=== PATIENT | female | born 1945 | race African-American/Black ===

== ENCOUNTER 2018-07-07 07:55 | Inpatient (IN) | payer OTHER, MEDICARE ==
[~2018-07-07] VITALS: Ht 162.6 cm; Wt 68.0 kg
[2018-07-07] MEDS ORDERED: TELM1TAB33 PO (08:04)
[2018-07-07] MEDS ORDERED: OMEP20TA2 PO (08:04)
[2018-07-07] MEDS ORDERED: ONDA8TAB6 PO (08:04)
[2018-07-07] MEDS ORDERED: CARV25TA47 PO (08:04)
[2018-07-07] MEDS ORDERED: ONDANSETRON HCL 4MG/2ML INJ IV STA (08:33)
[2018-07-07] MEDS ORDERED: FAMOTIDINE 20MG/2ML VIAL IV STA (08:33)
[2018-07-07] MEDS ORDERED: SODIUM CHLORIDE 0.9% 1,000 ML IV ONE (08:33)
[2018-07-07] MEDS ORDERED: MORPHINE SULFATE 4 MG/ML CPJ (NOT FOR IM USE) IV STA (08:33)
[2018-07-07 09:07] LABS: BASOPHILS % 0.4 % (0.0-2.0); HEMATOCRIT. 49.6 % (36.0-48.0); HEMOGLOBIN. 16.2 g/dL (12.0-16.0); MEAN CORPUSCULAR HEMOGLOBIN 27.6 pg (28.0-32.0); MEAN CORPUSCULAR VOLUME 84.5 fL (81.0-99.0); MEAN PLATELET VOLUME 9.6 fl (7.4-10.4); MONOCYTES % 5.3 % (2.0-8.0); NEUTROPHILS % 78.3 % (40.0-76.0); PLATELET 362 x1000/uL (130-400); RED BLOOD CELL COUNT 5.87 mill/uL (4.2-5.4); RED CELL DISTRIBUTION WIDTH 13.7 % (11.6-14.6)
[2018-07-07 09:47] LABS: CHLORIDE 101 mEq/L (98-107)
[2018-07-07 09:49] LABS: INR 1.1; PARTIAL THROMBOPLASTIN TIME 24.4 sec (23.4-31.0); PROTHROMBIN TIME 11.3 sec (9.1-11.1)
[2018-07-07] MEDS ORDERED: MORPHINE SULFATE 4 MG/ML CPJ (NOT FOR IM USE) IV ONE (10:30)
[2018-07-07] MEDS ORDERED: SODIUM CHLORIDE 0.9% 1000ML BAG (SEPSIS BOLUS) IV ONE (10:30)
[2018-07-07] MEDS ORDERED: PIPERACILLIN/TAZ 3.375G PREMIX 50 ML IV ONE (10:30)
[2018-07-07] MEDS ORDERED: ONDANSETRON HCL 4MG/2ML INJ IV ONE (10:30)
[2018-07-07] MEDS ORDERED: HYDRALAZINE 20MG/ML VIAL IV ONE (12:00)
[2018-07-07] MEDS ORDERED: PANTOPRAZOLE SODIUM 40 MG/VIAL IV ONE (12:00)
[2018-07-07 12:27] LABS: AMYLASE 179 IU/L (25-115)
[2018-07-07] MEDS ORDERED: DIPHENHYDRAMINE 50MG/ML VIAL IV PRN (15:00)
[2018-07-07] MEDS ORDERED: LORAZEPAM 2MG/ML CPJ IV PRN (15:00)
[2018-07-07] MEDS ORDERED: IPRATROPIUM/ALBUTEROL 0.5-3(2.5)MG/3ML NEB INH PRN (15:00)
[2018-07-07] MEDS ORDERED: HYDRALAZINE 20MG/ML VIAL IV NR (15:15)
[2018-07-07 15:34] LABS: CLARITY URINE CLEAR (CLEAR); COLOR URINE YELLOW (YELLOW); KETONES URINE NEGATIVE (NEGATIVE); LEUKOCYTE ESTERASE URINE 1+ (NEGATIVE); NITRITE URINE NEGATIVE (NEGATIVE); OCCULT BLOOD URINE NEGATIVE (NEGATIVE); PH URINE 5.5 (4.5-8.0); PROTEIN URINE 1+ (NEGATIVE); SPECIFIC GRAVITY URINE 1.013 (1.005-1.030); UROBILINOGEN URINE 0.2 E.U./dL (0.2-1.0)
[2018-07-07 15:35] LABS: BG CARBOXYHEMOGLOBIN 1.2 % (0.5-1.5); BG DEOXYHEMOGLOBIN 3.3 % (0.0-5.0); BG FRACTION INSPIRED OXYGEN 21; BG METHEMOGLOBIN 0.2 % (0.0-1.5); BG OXYGEN SATURATION 96.7 % (92.0-98.5); BG OXYHEMOGLOBIN 95.3 % (94.0-97.0); BG PCO2 33.6 mmHg (35.0-45.0); BG PH 7.471 (7.350-7.450); BG PO2 86.9 mmHg (75.0-100.0); BG SAMPLE SITE RIGHT RADIAL; BG TOTAL HEMOGLOBIN 14.7 g/dL (12.0-18.0); BG VENT MODE ROOM AIR
[2018-07-07 15:53] LABS: *AMPHETAMINES SCREEN URINE NEGATIVE (NEGATIVE); *BARBITURATES SCREEN URINE NEGATIVE (NEGATIVE); *BENZODIAZEPINES SCREEN URINE NEGATIVE (NEGATIVE); CANNABINOID URINE SCREEN NEGATIVE (NEGATIVE); METHADONE URINE SCREEN NEGATIVE (NEGATIVE); OPIATES URINE SCREEN PRESUMTIVE POSITIVE (NEGATIVE); PHENCYCLIDINE URINE SCREEN NEGATIVE (NEGATIVE)
[2018-07-07 15:54] LABS: *COCAINE SCREEN URINE NEGATIVE (NEGATIVE)
[2018-07-07 16:21] LABS: HEMOGLOBIN 14.5 g/dL (12.0-16.0); MEAN CORPUSCULAR HEMOGLOBIN 27.8 pg (28.0-32.0); MEAN CORPUSCULAR VOLUME 85.9 fL (81.0-99.0); PLATELET 270 x1000/uL (130-400); RED BLOOD CELL COUNT 5.23 mill/uL (4.2-5.4); RED CELL DISTRIBUTION WIDTH 13.6 % (11.6-14.6)
[2018-07-07] MEDS: ONDANSETRON HCL 4MG/2ML INJ IV PRN (16:28)
[2018-07-07] MEDS: HYDRALAZINE 20MG/ML VIAL IV PRN (16:28)
[2018-07-07] MEDS: MORPHINE SULFATE 4 MG/ML CPJ (NOT FOR IM USE) IV PRN (16:28)
[2018-07-07] MEDS ORDERED: PIPERACILLIN/TAZ 2.25G PREMIX 50 ML IV NR (20:30)
[2018-07-07] MEDS: PANTOPRAZOLE SODIUM 40 MG/VIAL IV SCH (22:00)
[2018-07-07] MEDS: DEXT 5%/0.45% NACL 1000ML 1,000 ML IV SCH (22:08)
[2018-07-07 23:06] VITALS: BP 170/95
[2018-07-07 23:30] VITALS: BP 182/99
[2018-07-07 23:35] LABS: HEMATOCRIT 42.2 % (36.0-48.0); HEMOGLOBIN 13.8 g/dL (12.0-16.0)
[2018-07-07 23:51] LABS: CREATINE KINASE MB FRACTION 5.2 ng/mL (0.5-3.6)
[2018-07-08] VITALS (74 sets, daily range): BP systolic 110–202; BP diastolic 56–148
[2018-07-08] MEDS ORDERED: VANCOMYCIN 1 G PREMIX 200 ML IV SCH
[2018-07-08] MEDS: MORPHINE SULFATE 4 MG/ML CPJ (NOT FOR IM USE) IV PRN ×3 (00:13→14:27)
[2018-07-08] MEDS: PANTOPRAZOLE SODIUM 40 MG/VIAL IV SCH ×2 (01:00→20:52)
[2018-07-08] MEDS: PIPERACILLIN/TAZ 2.25G PREMIX 50 ML IV SCH ×3 (03:00→17:17)
[2018-07-08 06:18] LABS: BASOPHILS % 0.1 % (0.0-2.0); HEMATOCRIT. 40.9 % (36.0-48.0); HEMOGLOBIN. 13.5 g/dL (12.0-16.0); LYMPHOCYTES % 15.5 % (20.0-50.0); MEAN CORPUSCULAR HEMOGLOBIN 27.9 pg (28.0-32.0); MEAN CORPUSCULAR VOLUME 84.4 fL (81.0-99.0); MEAN PLATELET VOLUME 9.3 fl (7.4-10.4); MONOCYTES % 7.8 % (2.0-8.0); NEUTROPHILS % 76.6 % (40.0-76.0); PLATELET 283 x1000/uL (130-400); RED BLOOD CELL COUNT 4.85 mill/uL (4.2-5.4); RED CELL DISTRIBUTION WIDTH 13.5 % (11.6-14.6)
[2018-07-08 06:39] LABS: CHLORIDE 105 mEq/L (98-107)
[2018-07-08 06:46] LABS: AMYLASE 256 IU/L (25-115)
[2018-07-08 06:47] LABS: LDL CHOLESTEROL 115 mg/dL (5-100)
[2018-07-08 06:48] LABS: CREATINE KINASE 353 IU/L (26-192); CREATINE KINASE MB FRACTION 4.5 ng/mL (0.5-3.6); HDL CHOLESTEROL 48 mg/dL (40-59)
[2018-07-08] MEDS: HYDRALAZINE 20MG/ML VIAL IV PRN (08:18)
[2018-07-08] MEDS ORDERED: POTASSIUM CHLORIDE INJ 40 MEQ in DEXT 5% WATER 250 ML IV NR (12:00)
[2018-07-08] MEDS: ONDANSETRON HCL 4MG/2ML INJ IV PRN (13:17)
[2018-07-08] MEDS: DEXT 5%/0.45% NACL 1000ML 1,000 ML IV SCH (13:22)
[2018-07-08] MEDS ORDERED: PIPERACILLIN/TAZ 2.25G PREMIX 50 ML IV SCH (14:00)
[2018-07-08] MEDS: ENALAPRIL 1.25MG/ML VIAL 1ML IV PRN (14:26)
[2018-07-08] MEDS ORDERED: ENALAPRIL 1.25MG/ML VIAL 1ML IV NR (15:30)
[2018-07-08] MEDS ORDERED: MORPHINE SULFATE 4 MG/ML CPJ (NOT FOR IM USE) IV NR (15:30)
[2018-07-08 16:04] LABS: PHOSPHORUS 2.8 mg/dL (2.5-4.9)
[2018-07-08] MEDS: NITROGLYCERIN 50MG PREMIX 250 ML IV PRN (17:17)
[2018-07-08] MEDS: VANCOMYCIN 750 MG PREMIX 150 ML IV SCH (20:52)
[2018-07-09] VITALS (97 sets, daily range): BP systolic 85–220; BP diastolic 39–135
[2018-07-09] MEDS: PIPERACILLIN/TAZ 2.25G PREMIX 50 ML IV SCH ×4 (00:11→17:10)
[2018-07-09] MEDS: MORPHINE SULFATE 4 MG/ML CPJ (NOT FOR IM USE) IV PRN (02:59)
[2018-07-09] MEDS: DEXT 5%/0.45% NACL 1000ML 1,000 ML IV SCH ×3 (05:00→17:10)
[2018-07-09 05:40] LABS: HEMATOCRIT 36.2 % (36.0-48.0); HEMOGLOBIN 12.1 g/dL (12.0-16.0); MEAN CORPUSCULAR HEMOGLOBIN 28.3 pg (28.0-32.0); MEAN CORPUSCULAR VOLUME 84.7 fL (81.0-99.0); PLATELET 236 x1000/uL (130-400); RED BLOOD CELL COUNT 4.28 mill/uL (4.2-5.4); RED CELL DISTRIBUTION WIDTH 13.5 % (11.6-14.6)
[2018-07-09 05:42] LABS: CHLORIDE 106 mEq/L (98-107)
[2018-07-09 05:49] LABS: AMYLASE 222 IU/L (25-115)
[2018-07-09] MEDS: NITROGLYCERIN 50MG PREMIX 250 ML IV PRN ×2 (07:11→08:40)
[2018-07-09] MEDS ORDERED: NA PHOS,M-B/NA PHOS,DI-BA ENEMA 118ML PR NR (08:15)
[2018-07-09] MEDS: ONDANSETRON HCL 4MG/2ML INJ IV PRN ×2 (08:39→20:00)
[2018-07-09] MEDS: PANTOPRAZOLE SODIUM 40 MG/VIAL IV SCH ×2 (08:46→21:00)
[2018-07-09] MEDS: BISACODYL 5MG TABLET PO SCH (08:46)
[2018-07-09] MEDS ORDERED: KCL 20MEQ/100ML PREMIX 100 ML IV NR (09:00)
[2018-07-09] MEDS: HYDRALAZINE 20MG/ML VIAL IV PRN ×3 (09:03→21:34)
[2018-07-09] MEDS: ENALAPRIL 1.25MG/ML VIAL 1ML IV PRN ×2 (10:55→16:18)
[2018-07-09] MEDS ORDERED: LORAZEPAM 2MG/ML CPJ IV PRN (19:00)
[2018-07-09] MEDS: VANCOMYCIN 750 MG PREMIX 150 ML IV SCH (21:00)
[2018-07-09] MEDS: CLONIDINE 0.1MG TABLET PO SCH (21:01)
[2018-07-10] VITALS (61 sets, daily range): BP systolic 127–190; BP diastolic 40–108
[2018-07-10] MEDS: ENALAPRIL 1.25MG/ML VIAL 1ML IV PRN ×3 (04:28→18:28)
[2018-07-10] MEDS: DEXT 5%/0.45% NACL 1000ML 1,000 ML IV SCH ×3 (04:50→18:29)
[2018-07-10] MEDS: PIPERACILLIN/TAZ 2.25G PREMIX 50 ML IV SCH ×4 (05:04→20:52)
[2018-07-10] MEDS: CLONIDINE 0.1MG TABLET PO SCH ×3 (05:05→22:00)
[2018-07-10 05:43] LABS: CHLORIDE 105 mEq/L (98-107)
[2018-07-10 05:51] LABS: HEMATOCRIT 33.8 % (36.0-48.0); HEMOGLOBIN 11.4 g/dL (12.0-16.0); MEAN CORPUSCULAR HEMOGLOBIN 28.3 pg (28.0-32.0); MEAN CORPUSCULAR VOLUME 84.2 fL (81.0-99.0); PLATELET 218 x1000/uL (130-400); RED BLOOD CELL COUNT 4.01 mill/uL (4.2-5.4); RED CELL DISTRIBUTION WIDTH 13.4 % (11.6-14.6)
[2018-07-10] MEDS ORDERED: POTASSIUM CHLORIDE INJ 50 MEQ in DEXT 5% WATER 500 ML IV NR (07:30)
[2018-07-10] MEDS: PANTOPRAZOLE SODIUM 40 MG/VIAL IV SCH ×2 (08:00→20:52)
[2018-07-10] MEDS: BISACODYL 5MG TABLET PO SCH (08:00)
[2018-07-10] MEDS: HYDRALAZINE 20MG/ML VIAL IV PRN ×2 (08:03→15:37)
[2018-07-10] MEDS: AMLODIPINE 5MG TABLET PO SCH (11:12)
[2018-07-10 12:29] LABS: HEPATITIS B SURFACE ANTIGEN NEGATIVE
[2018-07-10 12:57] LABS: HEPATITIS A AB IGM NEGATIVE (NEGATIVE)
[2018-07-10] MEDS: ONDANSETRON HCL 4MG/2ML INJ IV PRN (13:54)
[2018-07-10] MEDS: MORPHINE SULFATE 4 MG/ML CPJ (NOT FOR IM USE) IV PRN (13:55)
[2018-07-10] MEDS ORDERED: VANCOMYCIN 1 G PREMIX 200 ML IV SCH (15:00)
[2018-07-11] VITALS (19 sets, daily range): BP systolic 124–189; BP diastolic 78–118
[2018-07-11] MEDS: HYDRALAZINE 20MG/ML VIAL IV PRN ×2 (01:07→08:25)
[2018-07-11] MEDS ORDERED: POTASSIUM CHLORIDE INJ 40 MEQ in SODIUM CHLORIDE 0.9% 250 ML IV SCH (02:00)
[2018-07-11] MEDS: ENALAPRIL 1.25MG/ML VIAL 1ML IV PRN (04:55)
[2018-07-11] MEDS: PIPERACILLIN/TAZ 2.25G PREMIX 50 ML IV SCH ×3 (04:59→21:12)
[2018-07-11] MEDS: CLONIDINE 0.1MG TABLET PO SCH ×3 (05:00→21:12)
[2018-07-11] MEDS: DEXT 5%/0.45% NACL 1000ML 1,000 ML IV SCH ×2 (05:02→21:13)
[2018-07-11 05:56] LABS: HEMATOCRIT 35.8 % (36.0-48.0); MEAN CORPUSCULAR HEMOGLOBIN 28.2 pg (28.0-32.0); MEAN CORPUSCULAR VOLUME 84.1 fL (81.0-99.0); PLATELET 223 x1000/uL (130-400); RED BLOOD CELL COUNT 4.26 mill/uL (4.2-5.4); RED CELL DISTRIBUTION WIDTH 13.2 % (11.6-14.6)
[2018-07-11] MEDS: ONDANSETRON HCL 4MG/2ML INJ IV PRN (08:25)
[2018-07-11] MEDS: AMLODIPINE 5MG TABLET PO SCH (08:41)
[2018-07-11] MEDS: PANTOPRAZOLE SODIUM 40 MG/VIAL IV SCH ×2 (08:48→21:12)
[2018-07-11] MEDS: BISACODYL 5MG TABLET PO SCH (08:48)
[2018-07-11] MEDS ORDERED: METOPROLOL TARTRATE 25MG TABLET PO SCH ×2 (11:00→21:00)
[2018-07-11] MEDS: HYDRALAZINE HCL 25MG TABLET PO SCH ×2 (14:00→21:12)
[2018-07-11] MEDS ORDERED: LORAZEPAM 2MG/ML CPJ IV PRN (15:00)
[2018-07-11] MEDS: POTASSIUM CHLORIDE INJ 40 MEQ in DEXT 5% WATER 250 ML IV SCH ×2 (15:00→16:49)
[2018-07-12] VITALS: BP 138/87
[2018-07-12] MEDS: DEXT 5%/0.45% NACL 1000ML 1,000 ML IV SCH ×2 (03:28→09:03)
[2018-07-12 04:00] VITALS: BP 164/87
[2018-07-12] MEDS: HYDRALAZINE HCL 25MG TABLET PO SCH ×3 (05:24→21:52)
[2018-07-12] MEDS: PIPERACILLIN/TAZ 2.25G PREMIX 50 ML IV SCH ×3 (05:24→20:52)
[2018-07-12] MEDS: CLONIDINE 0.1MG TABLET PO SCH ×3 (05:24→21:52)
[2018-07-12] MEDS: HYDRALAZINE 20MG/ML VIAL IV PRN ×2 (05:24→12:31)
[2018-07-12 06:21] LABS: HEMATOCRIT 32.5 % (36.0-48.0); HEMOGLOBIN 10.7 g/dL (12.0-16.0); MEAN CORPUSCULAR HEMOGLOBIN 27.8 pg (28.0-32.0); MEAN CORPUSCULAR VOLUME 84.6 fL (81.0-99.0); PLATELET 220 x1000/uL (130-400); RED BLOOD CELL COUNT 3.84 mill/uL (4.2-5.4); RED CELL DISTRIBUTION WIDTH 13.3 % (11.6-14.6)
[2018-07-12 06:27] LABS: PHOSPHORUS 2.8 mg/dL (2.5-4.9)
[2018-07-12 08:00] VITALS: BP 147/70
[2018-07-12] MEDS ORDERED: POTASSIUM CHLORIDE INJ 40 MEQ in DEXT 5% WATER 250 ML IV SCH (08:30)
[2018-07-12] MEDS: AMLODIPINE 5MG TABLET PO SCH (09:01)
[2018-07-12] MEDS: PANTOPRAZOLE SODIUM 40 MG/VIAL IV SCH ×2 (09:03→20:52)
[2018-07-12 12:00] VITALS: BP 189/80
[2018-07-12] MEDS ORDERED: SODIUM CHLORIDE 0.9% 10ML VIAL ONE (15:03)
[2018-07-12] MEDS ORDERED: MIDAZOLAM HCL 5 MG/5 ML VIAL IV PRN (15:22)
[2018-07-12] MEDS ORDERED: FENTANYL CITRATE/PF 50MCG/ML 2ML VIAL IV PRN (15:23)
[2018-07-12] MEDS ORDERED: SIMETHICONE 40 MG/0.6 ML 30ML ONE (15:30)
[2018-07-12] MEDS ORDERED: FENTANYL CITRATE/PF 50MCG/ML 2ML VIAL ONE (15:31)
[2018-07-12] MEDS ORDERED: MIDAZOLAM HCL 5 MG/5 ML VIAL ONE (15:31)
[2018-07-12 17:00] VITALS: BP 135/90
[2018-07-12 20:00] VITALS: BP 125/71
[2018-07-12] MEDS ORDERED: VANCOMYCIN 750 MG PREMIX 150 ML IV NR (21:00)
[2018-07-13] VITALS (7 sets, daily range): BP systolic 126–179; BP diastolic 61–103
[2018-07-13] MEDS: DEXT 5%/0.45% NACL 1000ML 1,000 ML IV SCH ×3 (02:50→18:47)
[2018-07-13] MEDS: PIPERACILLIN/TAZ 2.25G PREMIX 50 ML IV SCH ×3 (05:39→21:03)
[2018-07-13] MEDS: HYDRALAZINE HCL 25MG TABLET PO SCH ×3 (05:41→21:04)
[2018-07-13] MEDS: CLONIDINE 0.1MG TABLET PO SCH ×2 (05:41→13:33)
[2018-07-13] MEDS: AMLODIPINE 5MG TABLET PO SCH (09:17)
[2018-07-13] MEDS: PANTOPRAZOLE SODIUM 40 MG/VIAL IV SCH ×2 (09:42→21:03)
[2018-07-13] MEDS ORDERED: POTASSIUM CHLORIDE 20MEQ TABLET SR PO SCH (10:15)
[2018-07-13 17:43] LABS: HEMATOCRIT 31.1 % (36.0-48.0); HEMOGLOBIN 10.2 g/dL (12.0-16.0); MEAN CORPUSCULAR HEMOGLOBIN 27.7 pg (28.0-32.0); MEAN CORPUSCULAR VOLUME 84.1 fL (81.0-99.0); PLATELET 227 x1000/uL (130-400); RED CELL DISTRIBUTION WIDTH 13.2 % (11.6-14.6)
[2018-07-13] MEDS ORDERED: ACETAMINOPHEN 325MG TABLET PO PRN (21:00)
[2018-07-13] MEDS: CLONIDINE 0.2MG TABLET PO SCH (21:04)
[2018-07-14] VITALS (7 sets, daily range): BP systolic 103–153; BP diastolic 50–79
[2018-07-14] MEDS: DEXT 5%/0.45% NACL 1000ML 1,000 ML IV SCH ×2 (00:42→07:03)
[2018-07-14] MEDS: HYDRALAZINE HCL 25MG TABLET PO SCH ×2 (07:03→14:00)
[2018-07-14] MEDS: CLONIDINE 0.2MG TABLET PO SCH ×2 (07:03→14:00)
[2018-07-14] MEDS: PIPERACILLIN/TAZ 2.25G PREMIX 50 ML IV SCH ×2 (07:03→14:15)
[2018-07-14 07:27] LABS: HEMATOCRIT 30.7 % (36.0-48.0); HEMOGLOBIN 10.3 g/dL (12.0-16.0); MEAN CORPUSCULAR HEMOGLOBIN 28.3 pg (28.0-32.0); MEAN CORPUSCULAR VOLUME 84.7 fL (81.0-99.0); PLATELET 232 x1000/uL (130-400); RED BLOOD CELL COUNT 3.62 mill/uL (4.2-5.4)
[2018-07-14] MEDS: AMLODIPINE 5MG TABLET PO SCH (09:00)
[2018-07-14] MEDS: PANTOPRAZOLE SODIUM 40 MG/VIAL IV SCH (10:55)
[2018-07-14] MEDS ORDERED: POTASSIUM CHLORIDE INJ 40 MEQ in DEXT 5% WATER 250 ML IV SCH (14:00)
[2018-07-14] MEDS ORDERED: POTASSIUM CHLORIDE 20MEQ TABLET SR PO NR (14:45)
== END 2018-07-14 17:30 | disposition home or self-care (01) | DRG 871 ==
LOC: ER 08:01 → ENRESERV 09:48 → CANRESERV 09:48 → CVICU 10:45 → EDBEDREQ 10:50 → EDBEDREQSVC 10:50 → SUPCPDRO 15:47 → EDBEDREQSVC 15:52 → ENRESERV 21:03 → 7WST 07-11 09:52
PROVIDERS: ADMIT Internal Medicine; ATTEND Internal Medicine
PROC: 0DB68ZX Excision of Stomach, Via Natural or Artificial Opening Endoscopic, Diagnostic (ICD-10-PCS; principal; 2018-07-12)
DX: A41.9 Sepsis, unspecified organism (principal); K26.4 Chronic or unspecified duodenal ulcer with hemorrhage; K85.90 Acute pancreatitis without necrosis or infection, unspecified; K66.1 Hemoperitoneum; I50.43 Acute on chronic combined systolic (congestive) and diastolic (congestive) heart failure; K29.61 Other gastritis with bleeding; K29.81 Duodenitis with bleeding; N17.9 Acute kidney failure, unspecified; M62.82 Rhabdomyolysis; R17 Unspecified jaundice; K59.00 Constipation, unspecified; E87.6 Hypokalemia; E86.0 Dehydration; I11.0 Hypertensive heart disease with heart failure; K44.9 Diaphragmatic hernia without obstruction or gangrene; R73.9 Hyperglycemia, unspecified; Z88.0 Allergy status to penicillin
CPT/HCPCS: 36415; 36600; 71045; 74018; 74176; 76700; 80048; 80061; 80202; 80305; 82150; 82375; 82550; 82553; 82805; 83036; 83605; 83735; 83880; 84100; 84132; 84443; 84484; 85014; 85018; 85027; 86705; 86709; 86803; 87340; 88305; 88312; 88313; 93005; 93306; 93970; 96365; 96375; 96376; 97116; 97162; 97530; 99291; C1893; C9113; J0360; J1200; J2250; J2270; J2405; J2543; J3010; J3370; J3480; J3490; J7030; J7050; J7060